=== PATIENT | female | born 1980 | race African-American/Black ===

== ENCOUNTER 2018-10-17 05:28 | Emergency (ER) | payer OTHER | END 2018-10-17 06:29 | disposition home or self-care (01) | LOC: JER 05:28 ==

== ENCOUNTER 2019-01-24 14:36 | Emergency (ER) | payer OTHER ==
[2019-01-24 14:43] VITALS: BP 140/80; PULSE 75; TEMP 98.3; BMI 37.0
--- NOTE | 2019-01-24 15:37 | PDOC ---
History of Present Illness - General Chief Complaint: Carbon Monoxide Exposure Stated Complaint: WEAKNESS Time Seen by Provider: 01/24/19 15:03 History Source: Patient - History of Present Illness Timing/Duration: other (today) Past History - Past Medical History Allergies/Adverse Reactions: Allergies Allergy/AdvReac Type Severity Reaction Status Date / Time Latex, Natural Rubber Allergy Verified 01/24/19 14:43 LATEX Allergy Uncoded 01/24/19 14:43 Home Medications: Ambulatory Orders Diclofenac Sodium 75 mg PO BID #20 tablet. 10/17/18 Asthma: No Cancer: No Cardiac Disorders: No COPD: No Diabetes: No HTN: No Seizures: No Thyroid Disease: No - Surgical History Cholecystectomy: Yes - Suicide/Smoking/Psychosocial Hx Smoking History: Never smoked Have you smoked in the past 12 months: No Number of Cigarettes Smoked Daily: 0 Hx Alcohol Use: No Drug/Substance Use Hx: No Substance Use Type: None Hx Substance Use Treatment: No Review of Systems - Review of Systems Respiratory: No: Cough, Shortness of Breath, Wheezing Cardiac (ROS): No: Chest Pain ABD/GI: No: Nausea, Vomiting *Physical Exam - Vital Signs Last Vital Signs Temp Pulse Resp BP Pulse Ox 98.3 F 75 16 140/80 95 01/24/19 14:40 01/24/19 14:40 01/24/19 14:40 01/24/19 14:40 01/24/19 14:40 - Physical Exam General Appearance: Yes: Appropriately Dressed. No: Apparent Distress HEENT: positive: Normal Voice Neck: positive: Supple Respiratory/Chest: positive: Lungs Clear, Normal Breath Sounds. negative: Respiratory Distress Integumentary: positive: Dry, Warm Neurologic: positive: Fully Oriented, Alert, Normal Mood/Affect Medical Decision Making - Medical Decision Making 01/24/19 15:34 38-year-old female, no significant history, here for evaluation for possible carbon monoxide exposure. States about 1 PM today, her carbon monoxide detector went off but not certain if it was just a battery issue. Asymptomatic at this time. see exam Possible CO exposure Asx Well yair and stable -carboxyhemoglobin lvl pending 01/24/19 17:00 Carboxyhemoglobin test within normal limits. Patient remains well-appearing and stable here. No further evaluation needed at this time *DC/Admit/Observation/Transfer Diagnosis at time of Disposition: Evaluation by medical service required - Discharge Dispostion Disposition: HOME Condition at time of disposition: Good - Referrals Referrals: Ursula Tan MD [Primary Care Provider] - - Patient Instructions Additional Instructions: The blood test here shows that you were not exposed to carbon monoxide. Return to ER for any worsening of symptoms - Post Discharge Activity
== END 2019-01-24 18:06 | disposition home or self-care (01) ==
LOC: JERFT 14:36 → SUPCPDRO 14:36 → JERFT 18:06
DX: Z77.018 Contact with and (suspected) exposure to other hazardous metals (principal)
CPT/HCPCS: 82375; 99281-25

== ENCOUNTER 2019-02-18 18:52 | Emergency (ER) | payer OTHER ==
[2019-02-18 18:59] VITALS: BP 134/77; PULSE 87; TEMP 98.4; BMI 36.6
--- NOTE | 2019-02-18 19:19 | PDOC ---
History of Present Illness - General Chief Complaint: Pain, Acute Stated Complaint: INJURY-RT.KNEE PAIN Time Seen by Provider: 02/18/19 19:08 - History of Present Illness Initial Comments: 02/18/19 19:14 38 y/o F with no CM presents for evaluation of L knee pain after climbing stairs and working out today, she has a know LMT and OA in the L knee but is requesting a new orthopedic surgeon to evaluate her for arthroscopy. Past History - Past Medical History Allergies/Adverse Reactions: Allergies Allergy/AdvReac Type Severity Reaction Status Date / Time Latex, Natural Rubber Allergy Verified 01/24/19 14:43 LATEX Allergy Uncoded 01/24/19 14:43 Home Medications: Ambulatory Orders Diclofenac Sodium 75 mg PO BID #20 tablet. 10/17/18 Ibuprofen [Motrin -] 600 mg PO TID #30 tablet 02/18/19 Asthma: No Cancer: No Cardiac Disorders: No COPD: No Diabetes: No HTN: No Seizures: No Thyroid Disease: No Other medical history: RT.KNEE SMALL TEAR OF MENISCUS - Surgical History Cholecystectomy: Yes - Immunization History Immunization Up to Date: No - Psycho Social/Smoking Cessation Hx Smoking History: Never smoked Have you smoked in the past 12 months: No Number of Cigarettes Smoked Daily: 0 Information on smoking cessation initiated: No Hx Alcohol Use: No Drug/Substance Use Hx: No Substance Use Type: None Hx Substance Use Treatment: No Review of Systems - Review of Systems Musculoskeletal: Yes: Joint Pain *Physical Exam - Vital Signs Last Vital Signs Temp Pulse Resp BP Pulse Ox 98.4 F 87 18 134/77 98 02/18/19 18:53 02/18/19 18:53 02/18/19 18:53 02/18/19 18:53 02/18/19 18:53 - Physical Exam Comments: 02/18/19 19:16 Knee skin color and temperature are normal. There is no palpable effusion. Range of motion is full and nonpainful. There is mild medial and lateral joint line tenderness. No patellofemoral crepitation. No evidence of instability. Thigh and calf are soft and nontender. There are no gross sensory motor deficits. Extensor mechanism is intact. Medical Decision Making - Medical Decision Making 02/18/19 19:17 Motrin for pain WBAT f/u with ortho Discharge - Discharge Information Problems reviewed: Yes Clinical Impression/Diagnosis: Right knee pain Condition: Stable Disposition: HOME - Admission No - Follow up/Referral Referrals: Ursula Tan MD [Primary Care Provider] - - Patient Discharge Instructions Additional Instructions: You may take Tylenol as directed as per the instructions on the box. This will help with pain. Weigh bear as tolerated and follow up with orthopedic surgery in 1-2 days for further evaluation and treatment options and return to the emergency room should symptoms worsen. - Post Discharge Activity
== END 2019-02-18 19:24 | disposition home or self-care (01) ==
LOC: JERFT 18:52
DX: M25.561 Pain in right knee (principal); M17.9 Osteoarthritis of knee, unspecified; Z91.040 Latex allergy status
CPT/HCPCS: 99282-25

== ENCOUNTER 2021-03-21 15:46 | Emergency (ER) | payer OTHER ==
[2021-03-21 16:04] VITALS: BP 167/82; PULSE 53; TEMP 98.3; BMI 34.1
[2021-03-21] MEDS ORDERED: KETOROLAC TROMETHAMINE 30 MG/1 ML VIAL IVPUSH ONE (17:09)
[2021-03-21 17:19] LABS: EPI CELLS 5 /uL (0-25.1); HCG,QUALITATIVE URINE Negative; HYALINE CASTS 0 /uL (0-3.1); URINE APPEARANCE CLEAR; URINE BACTERIA 450 /uL (0-1359); URINE BILIRUBIN NEGATIVE (NEGATIVE); URINE COLOR YELLOW; URINE GLUCOSE (UA) NEGATIVE (NEGATIVE); URINE KETONE NEGATIVE (NEGATIVE); URINE LEUK ESTERASE NEGATIVE (NEGATIVE); URINE NITRITE NEGATIVE (NEGATIVE); URINE PROTEIN NEGATIVE (NEGATIVE); URINE RBC 8 /uL (0-23.9); URINE UROBILINOGEN 0.2 mg/dL (0.2-1.0); URINE WBC 8 /uL (0-25.8)
[2021-03-21] MEDS ORDERED: KETOROLAC TROMETHAMINE 30 MG/1 ML VIAL ONE ×2 (17:23→18:34)
[2021-03-21] MEDS ORDERED: KETOROLAC TROMETHAMINE 30 MG/1 ML VIAL IM ONE (19:05)
== END 2021-03-21 21:05 | disposition home or self-care (01) ==
LOC: JER 15:46
PROC: 3E0333Z Introduction of Anti-inflammatory into Peripheral Vein, Percutaneous Approach (ICD-10-PCS; principal; 2021-03-21)
PROC: 3E0233Z Introduction of Anti-inflammatory into Muscle, Percutaneous Approach (ICD-10-PCS; 2021-03-21)
DX: R10.2 Pelvic and perineal pain (principal)
CPT/HCPCS: 76830-TC; 76856-TC; 81003; 84703; 87086; 96372; 96374; 99284-25

== ENCOUNTER 2021-09-04 09:22 | Emergency (ER) | payer OTHER ==
[2021-09-04 09:34] VITALS: BP 136/64; PULSE 65; TEMP 97.7; BMI 34.0
[2021-09-04] MEDS ORDERED: BACITRACIN 15 GM TUBE TOPICAL OINTMENT TP ONE (10:11)
[2021-09-04] MEDS ORDERED: BACITRACIN 0.9 GM PACKET ONE (10:13)
[2021-09-04] MEDS ORDERED: BACITRACIN 15 GM TUBE TOPICAL OINTMENT ONE (10:14)
== END 2021-09-04 10:34 | disposition home or self-care (01) ==
LOC: JERFT 09:22
DX: L81.8 Other specified disorders of pigmentation (principal)
CPT/HCPCS: 99283-25

== ENCOUNTER 2022-04-09 13:02 | Emergency (ER) | payer OTHER ==
[2022-04-09 13:26] VITALS: BP 149/66; PULSE 64; RESP 18; TEMP 98; BMI 34.0
[2022-04-09] MEDS ORDERED: guaiFENesin 200 MG/10 ML 10 ML UNIT-DOSE CUPS PO ONE (14:22)
[2022-04-09] MEDS ORDERED: ACETAMINOPHEN 500 MG TABLET (FP) PO ONE (14:22)
[2022-04-09] MEDS ORDERED: guaiFENesin/D-METHORPHAN HB 10 ML UNIT-DOSE CUPS ONE (14:48)
[2022-04-09] MEDS ORDERED: ACETAMINOPHEN 500 MG TABLET (FP) ONE (14:48)
== END 2022-04-09 15:35 | disposition home or self-care (01) ==
LOC: JER 13:02
DX: R51.9 Headache, unspecified (principal); R05.9 Cough, unspecified
CPT/HCPCS: 0241U-QW; 99283-25

== ENCOUNTER 2023-02-11 17:05 | Inpatient (IN) | payer OTHER ==
[2023-02-11 19:44] LABS: BASO % 1.3 % (0-2.0); EOS % 0.9 % (0-4.5); HEMATOCRIT 22.6 % (32.4-45.2); LYMPH % 29.3 % (8-40); MCHC 28.3 g/dl (32.0-36.0); MEAN CELL VOLUME 52.1 fl (80-96); MEAN PLT VOLUME 9.3 fl (7.5-11.1); MONO % 4.3 % (3.8-10.2); NEUT % 64.2 % (42.8-82.8); PLATELET COUNT 354 10^3/uL (134-434); RBC 4.33 M/mm3 (3.60-5.2); WHITE BLOOD COUNT 11.6 K/mm3 (4.0-10.0)
[2023-02-11 19:50] LABS: MCH 14.7 pg (25.7-33.7)
[2023-02-11 19:51] LABS: HEMOGLOBIN 6.4 GM/dL (10.7-15.3)
[2023-02-11 20:16] LABS: POTASSIUM 3.6 mmol/L (3.5-5.1)
[2023-02-11 20:18] LABS: CALCIUM 8.2 mg/dL (8.5-10.1)
[2023-02-11 20:19] LABS: ALBUMIN 3.1 g/dl (3.4-5.0)
[2023-02-11 20:22] LABS: CREATININE 0.8 mg/dL (0.55-1.3)
[2023-02-11 20:23] LABS: URINE APPEARANCE CLEAR; URINE BILIRUBIN NEGATIVE (NEGATIVE); URINE COLOR YELLOW; URINE GLUCOSE (UA) NEGATIVE (NEGATIVE); URINE KETONE NEGATIVE (NEGATIVE); URINE LEUK ESTERASE NEGATIVE (NEGATIVE); URINE NITRITE NEGATIVE (NEGATIVE); URINE PROTEIN NEGATIVE (NEGATIVE); URINE UROBILINOGEN 0.2 mg/dL (0.2-1.0)
[2023-02-11 20:23] LABS: TOT PROT 7.3 g/dl (6.4-8.2)
[2023-02-11 20:24] LABS: BILIRUBIN,TOTAL 0.6 mg/dL (0.2-1)
[2023-02-11 20:26] LABS: HCG,QUALITATIVE URINE Negative
[2023-02-11 20:47] LABS: ANISOCYTOSIS 3+; MACROCYTOSIS 0; OVALOCYTE 1+; TARGET CELLS 1+; TEAR DROP CELLS 1+
[2023-02-12 00:06] LABS: RETICULOCYTES 2.13 % (0.5-1.5)
[2023-02-12 08:20] LABS: BASO % 0.9 % (0-2.0); EOS % 0.9 % (0-4.5); HEMATOCRIT 24.6 % (32.4-45.2); LYMPH % 26.4 % (8-40); MCHC 27.1 g/dl (32.0-36.0); MEAN PLT VOLUME 10.1 fl (7.5-11.1); MONO % 3.1 % (3.8-10.2); NEUT % 68.7 % (42.8-82.8); RBC 4.47 M/mm3 (3.60-5.2); RDW 22.3 % (11.6-15.6)
[2023-02-12 08:28] LABS: MCH 14.9 pg (25.7-33.7)
[2023-02-12 08:32] LABS: HEMOGLOBIN 6.7 GM/dL (10.7-15.3)
[2023-02-12 08:39] LABS: POTASSIUM 3.3 mmol/L (3.5-5.1)
[2023-02-12 08:44] LABS: ALBUMIN 2.9 g/dl (3.4-5.0); BLOOD UREA NITROGEN 6.7 mg/dL (7-18); MAGNESIUM 1.9 mg/dL (1.8-2.4)
[2023-02-12 08:47] LABS: CREATININE 0.7 mg/dL (0.55-1.3); PHOSPHOROUS 2.9 mg/dL (2.5-4.9)
[2023-02-12 08:48] LABS: BILIRUBIN,TOTAL 0.8 mg/dL (0.2-1)
[2023-02-12 08:49] LABS: TOT PROT 7.1 g/dl (6.4-8.2)
[2023-02-12 08:51] LABS: PLATELET COUNT 324 10^3/uL (134-434)
[2023-02-12] MEDS ORDERED: POTASSIUM CHLORIDE TABS 10 MEQ TABLET.ER (FP) PO ONE (10:03)
[2023-02-12] MEDS ORDERED: POTASSIUM CHLORIDE TABS 20 MEQ TABLET.ER (FP) PO ONE (10:53)
[2023-02-12] MEDS ORDERED: POTASSIUM CHLORIDE TABS 10 MEQ TABLET.ER (FP) ONE (10:55)
[2023-02-12 11:31] VITALS: BMI 30.9
[2023-02-13 06:53] VITALS: RESP 18
[2023-02-13] MEDS ORDERED: ONDANSETRON 4 MG/2 ML VIAL IVPUSH PRN (09:37)
[2023-02-13 09:40] LABS: POTASSIUM 3.7 mmol/L (3.5-5.1)
[2023-02-13 09:41] LABS: BASO % 0.3 % (0-2.0); EOS % 1.1 % (0-4.5); HEMATOCRIT 30.5 % (32.4-45.2); HEMOGLOBIN 8.7 GM/dL (10.7-15.3); LYMPH % 20.7 % (8-40); MCHC 28.6 g/dl (32.0-36.0); MEAN PLT VOLUME 9.2 fl (7.5-11.1); NEUT % 74.9 % (42.8-82.8); PLATELET COUNT 304 10^3/uL (134-434); RBC 5.26 M/mm3 (3.60-5.2); RDW 26.1 % (11.6-15.6); WHITE BLOOD COUNT 13.5 K/mm3 (4.0-10.0)
[2023-02-13 09:42] LABS: CALCIUM 8.3 mg/dL (8.5-10.1); MCH 16.6 pg (25.7-33.7)
[2023-02-13 09:43] LABS: ALBUMIN 3.1 g/dl (3.4-5.0); BLOOD UREA NITROGEN 3.9 mg/dL (7-18)
[2023-02-13 09:46] LABS: CREATININE 0.7 mg/dL (0.55-1.3)
[2023-02-13 09:47] LABS: BILIRUBIN,TOTAL 1.3 mg/dL (0.2-1); TOT PROT 7.6 g/dl (6.4-8.2)
[2023-02-13 10:17] VITALS: TEMP 97.6
[2023-02-13] MEDS ORDERED: IRON SUCROSE INJECTION 300 MG in SODIUM CHLORIDE 235 ML IVPB ONE (13:30)
[2023-02-13 15:10] VITALS: BP 124/69; PULSE 86
[2023-02-13 16:25] LABS: PROTHROMBIN TIME (PATIENT) 11.6 SEC (9.7-13.0)
[2023-02-17 06:07] LABS: VON WILLEBRAND ANTIGEN 219 % (50-200)
== END 2023-02-13 17:29 | disposition home or self-care (01) | DRG 663 ==
LOC: JER 17:05 → JERBED 22:10 → OBSVTOIN 02-12 00:37 → J5S 02-12 18:34
PROVIDERS: ADMIT Internal Medicine; ATTEND Student in an Organized Health Care Education/Training Program
PROC: 30233N1 Transfusion of Nonautologous Red Blood Cells into Peripheral Vein, Percutaneous Approach (ICD-10-PCS; principal; 2023-02-11)
DX: D50.9 Iron deficiency anemia, unspecified (principal); D56.0 Alpha thalassemia; R53.1 Weakness; N92.0 Excessive and frequent menstruation with regular cycle; D21.9 Benign neoplasm of connective and other soft tissue, unspecified; R11.2 Nausea with vomiting, unspecified
CPT/HCPCS: 0241U-QW; 36415; 36430; 74176-TC; 76830-TC; 80053; 81003; 81257; 82272; 82728; 83540; 83550; 83735; 84100; 84443; 84703; 85025; 85045; 85246; 85247; 85384; 85610; 86850; 86900; 86901; 86922; 87086; 93306-TC; 99285-25; G0378; J1756; P9058

== ENCOUNTER → 2024-10-24 | Day surgery (SDC) | payer OTHER | END | disposition home or self-care (01) | LOC: FMAMMOTONE 07:47 | PROVIDERS: ATTEND Family Medicine | PROC: 0HBU3ZX Excision of Left Breast, Percutaneous Approach, Diagnostic (ICD-10-PCS; principal; 2024-10-24) | DX: N60.12 Diffuse cystic mastopathy of left breast (principal); N60.92 Unspecified benign mammary dysplasia of left breast; N64.89 Other specified disorders of breast; R92.1 Mammographic calcification found on diagnostic imaging of breast | CPT/HCPCS: 19081; 76098-TC-FY; 87899; 88305-TC; 88342-TC; A4648 ==

== ENCOUNTER 2025-01-09 06:13 | Day surgery (SDC) | payer OTHER ==
[2025-01-05 11:40] VITALS: BMI 30.2
[2025-01-09] MEDS ORDERED: LIDOCAINE HCL 1%, 10 MG/ML (20ML VIAL) ONE ×2 (11:42→12:47)
[2025-01-09] MEDS ORDERED: PROMETHAZINE HCL 25 MG/1 ML VIAL IVPB PRN (12:27)
[2025-01-09] MEDS ORDERED: ONDANSETRON 4 MG/2 ML VIAL IVPUSH PRN (12:27)
[2025-01-09] MEDS ORDERED: ACETAMINOPHEN 1000 MG/100 ML BAG IVPB PRN (12:28)
[2025-01-09] MEDS ORDERED: MIDAZOLAM HCL 2 MG/2 ML SINGLE DOSE VIAL ONE (12:32)
[2025-01-09] MEDS ORDERED: PROPOFOL 20 ML ONE (12:36)
[2025-01-09] MEDS ORDERED: KETOROLAC TROMETHAMINE 30 MG/1 ML VIAL ONE (12:37)
[2025-01-09] MEDS: LIDOCAINE HCL 1%, 10 MG/ML (20ML VIAL) NR ONE ×2 (12:44)
[2025-01-09] MEDS: LACTATED RINGERS SOLUTION 1,000 ML IV SCH (13:45)
[2025-01-09 15:35] VITALS: BP 145/73; PULSE 47; RESP 18; TEMP 97.1
== END 2025-01-09 15:41 | disposition home or self-care (01) ==
LOC: JASU-SURG 06:13
PROVIDERS: ATTEND Surgery
PROC: 0HBU0ZZ Excision of Left Breast, Open Approach (ICD-10-PCS; principal; 2025-01-09 11:30)
DX: D24.2 Benign neoplasm of left breast (principal)
CPT/HCPCS: 19281; 76098-TC-FY; 88307-TC; 94760